=== PATIENT | male | born 1960 | race African-American/Black ===

== ENCOUNTER 2020-05-23 12:58 | Emergency (ER) | payer MEDICAID ==
[~2020-05-23] VITALS: Ht 175.3 cm; Wt 100.0 kg
[2020-05-23] MEDS ORDERED: LORAZEPAM 1MG TABLET PO STA (13:17)
[2020-05-23] MEDS ORDERED: KETOROLAC 60MG/2ML VIAL IM STA (13:17)
[2020-05-23 13:39] VITALS: BP 152/90
[2020-05-23 14:37] LABS: CLARITY URINE CLEAR (CLEAR); COLOR URINE YELLOW (YELLOW); KETONES URINE 1+ (NEGATIVE); LEUKOCYTE ESTERASE URINE TRACE (NEGATIVE); NITRITE URINE NEGATIVE (NEGATIVE); OCCULT BLOOD URINE NEGATIVE (NEGATIVE); PROTEIN URINE TRACE (NEGATIVE)
== END 2020-05-23 15:31 | disposition home or self-care (01) ==
LOC: ER 12:58
DX: M54.5 Low back pain (principal); R07.81 Pleurodynia; Z91.81 History of falling; R03.0 Elevated blood-pressure reading, without diagnosis of hypertension; F41.9 Anxiety disorder, unspecified; M25.512 Pain in left shoulder; G89.29 Other chronic pain
CPT/HCPCS: 71101; 81003; 93005; 96372; 99285; J1885

== ENCOUNTER 2020-05-24 11:22 | Emergency (ER) | payer MEDICAID ==
[~2020-05-24] VITALS: Ht 180.3 cm; Wt 112.0 kg
[2020-05-24 11:25] VITALS: BP 181/94
[2020-05-24] MEDS ORDERED: KETOROLAC 60MG/2ML VIAL IM STA (11:55)
== END 2020-05-24 12:50 | disposition home or self-care (01) ==
LOC: ER 11:22
DX: M54.89 Other dorsalgia (principal); Z91.81 History of falling
CPT/HCPCS: 96372; 99283; J1885

== ENCOUNTER 2020-05-31 12:54 | Emergency (ER) | payer MEDICAID ==
[~2020-05-31] VITALS: Ht 175.3 cm; Wt 111.0 kg
[2020-05-31 12:55] VITALS: BP 144/83
[2020-05-31] MEDS ORDERED: KETOROLAC 30MG/ML VIAL IM ONE (13:30)
== END 2020-05-31 13:43 | disposition home or self-care (01) ==
LOC: ER 13:21
DX: M54.89 Other dorsalgia (principal)
CPT/HCPCS: 96372; 99283; J1885

== ENCOUNTER 2020-08-06 13:57 | Emergency (ER) | payer MEDICAID ==
[~2020-08-06] VITALS: Ht 185.4 cm; Wt 99.0 kg
[2020-08-06 14:01] VITALS: BP 153/89
== END 2020-08-06 14:37 | disposition home or self-care (01) ==
LOC: ER 14:04
DX: Z76.0 Encounter for issue of repeat prescription (principal); F41.9 Anxiety disorder, unspecified; F20.9 Schizophrenia, unspecified
CPT/HCPCS: 99283